=== PATIENT | female | born 1990 | race Caucasian/White ===

== ENCOUNTER 2021-10-28 06:50 | Inpatient (IN) ==
--- NOTE | 2021-10-25 13:21 | Anesthesiology Consultation ---
Date of Service October 25, 2021 Assessment & Plan (1) Encounter for pre-operative examination: COVID screening: Per assessment on 10/25: Travel screen negative, no known COVID-19 positive contacts or current COVID-19 related symptoms. Patient was C OVID PCR positive 09/13/21 (report scanned into [employer]) > symptoms at time of: loss taste and smell, fatigue, fever; received hydration in hospital > resolved. Surgeon arranging preop COVID testing (scheduled 10/26; [place]). Awaiting results. If preop COVID test comes back negative, patient is able to proceed without COVID positive pathway precautions per discontinuation of transmission-based precautions protocol. 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 Proposed Anesthesia Anesthesia Type: General Risk / Benefits Reviewed With: PT / POA / Parent / Guardian, Accepts Plan and Informed Consent Obtained History Surgery Operation Date: 10/28/21 08:50 Proposed Procedures p Section in LD (Delivery of Baby Through Abdominal Incision) - Erna Hdez MD, FACOG s with Bilateral Tubal Ligation - Erna Hdez MD, FACOG Height/Weight Height: 5 ft 3 in Weight: 84.368 kg Allergies Allergy/AdvReac Type Severity Reaction Status Date / Time Clarithromycin TABS Allergy Mild when child Uncoded 10/25/21 12:23 rash Erythromycin Derivatives Allergy Mild when child Uncoded 10/25/21 12:23 rash Medications Home Medications Medication Instructions Recorded Confirmed Last Taken prenat.vits,arthur,uqh-cdoj-jwlbv 1 tab PO QAM 03/21/21 10/27/21 09/15/21 10:30 ferrous sulfate 325 mg (65 mg 325 mg PO QAM 09/15/21 10/27/21 09/15/21 10:30 iron) tablet (iron) Past Medical History Medical History History of COVID-19 Dx 09/13/21 > symptoms at time of: loss taste and smell, fatigue, fever; received hydration in hospital > resolved Exercise / Class Metabolic Activity II 4-5 Yardwork/Stairs/Walk up hill Past Family History Family History Father Heart disease Clotting disorder No further details Deep vein thrombosis Denies family history of Ovarian cancer Breast cancer Colorectal cancer Past Surgical History Surgical History History of appendectomy History of wisdom tooth extraction S/P breast lumpectomy Past Anesthesia History No Hx of Anesthesia Complications and No Family Hx of Anesthesia Complications History of PONV No Hx of PONV and No Hx of Motion Sickness Social History Smoking Status: Never smoker Do You Dip or Chew Tobacco: No Hx Alcohol Use: No Hx Substance Use: No substance use type: does not use Review of Systems denies fever/cough/ colds/ chest pain/ SOB/ JUANJOSE denies JUANJOSE Physical Exam Vital Signs Last Vital Signs Pulse 82 10/28/21 07:55 Resp 18 10/28/21 07:55 BP 124/72 10/28/21 07:55 ENMT Mouth: no TMJ abnormality and no dentition abnormality Thyromental Distance: > or= 3.5 Finger Breadths Mallampati Class: II Neck neck extension not limited Respiratory normal respiratory effort; no respiratory distress Auscultation: lungs clear to auscultation bilaterally Cardiovascular Rate/Rhythm: regular rate and regular rhythm Neurologic moves all extremities Psychiatric Orientation: alert and oriented x 3 Testing Laboratory Results Blood Type A Positive 10/28/21 07:43 Antibody Screen NEGATIVE 10/28/21 07:43 COVID PCR (09/13/21): detected
--- NOTE | 2021-10-27 09:04 | History & Physical Report ---
Date of Service October 27, 2021 Assessment & Plan (1) Fourth degree perineal laceration during delivery: (2) with 39 completed weeks gestation: Plan: Patient desires primary c/s for delivery. Declines MAME, understanding that the liklihood of repeat 4th degree would be probably quite small. Patient also desires TL--understands permanent, other intermediate but reversible options discussed. Discussed consent with risks of anesthesia, bleeding, transfusion, infection, poor wound healing, damage to surrounding structures, need for further surgery, injury to baby. Questions answered. Consent reviewed and signed. Patient had COVID the beginning of Dec so will not be retested. Her son has a cold and tested neg for covid. She admits to a cough. History of Present Illness Chief Complaint: presents for c/s and tl Primary Care Provider: NO PCP Patient is a 31yowf with iup at 39 1/7 weeks who presents to labor and delivery for primary c/s with TL. She had a 4th degree laceration and repair with her first baby and does not want any chance of that happening again. She elects primary c/s. The has been uncomplicated. Blood Type A Positive 04/04/21 Antibody Screen NEGATIVE 04/04/21 Hemoglobin 9.6 g/dL (12.0-16.0) L 08/18/21 Hematocrit 29.9 % (37-47) L 08/18/21 Mean Corpuscular Volume 94.1 fL (80-100) 04/04/21 Platelet Count 322 K/uL (130-400) 04/04/21 Rubella IgG Antibody Immune (Immune) 04/04/21 Rapid Plasma Reagin Nonreactive (Nonreactive) 04/04/21 Hepatitis B Surface Antigen Neg (Neg) 04/04/21 HIV (1&2) Ab and P24 Ag, 4th Gener Neg (Neg) 04/04/21 Glucose 1 Hour 50 gm Load 136 mg/dl (70-130) H 08/18/21 OB Optional Labs: D Chlamydia trachomatis RNA NOT DETECTED (NOT DETECTED) 04/04/21 Neisseria gonorrhoeae RNA NOT DETECTED (NOT DETECTED) 04/04/21 Labs Reviewed: declines cf/sma low risk panorama--ak declined afp--ak 28 week 2 hr gtt passed-ak gbs neg--ak Allergies Allergy/AdvReac Type Severity Reaction Status Date / Time Clarithromycin TABS Allergy Mild when child Uncoded 10/25/21 12:23 rash Erythromycin Derivatives Allergy Mild when child Uncoded 10/25/21 12:23 rash Home Medications Medication Instructions Recorded Confirmed Type prenat.vits,arthur,zzb-zoqy-zjwsa 1 tab PO QAM 03/21/21 10/27/21 History ferrous sulfate 325 mg (65 mg 325 mg PO QAM 09/15/21 10/27/21 History iron) tablet (iron) Patient History Medical History History of COVID-19 Dx 09/13/21 > symptoms at time of: loss taste and smell, fatigue, fever; received hydration in hospital > resolved Surgical History History of appendectomy History of wisdom tooth extraction S/P breast lumpectomy Family History Father Heart disease Clotting disorder No further details Deep vein thrombosis Denies family history of Ovarian cancer Breast cancer Colorectal cancer Social History Smoking Status: Never smoker Second Hand Exposure: No; Hx Alcohol Use: No Hx Substance Use: No Preferred Language: Ethiopian Communication Ability: Effective Visual Impairment: Limited Hearing Ability: Normal Public Policy Associate Required: No Beliefs That Will Affect Care: None marital status: marital status details: Mele Harp (35) [phone] Current Living Situation: Spouse Current Living Situation Comment: Lives with , son, dog and cats current occupational status: employed current occupation: [employer] Feels Safe at Home: Yes caffeine: No Dental Care, Regularly: Yes Assistive Devices: Contacts and Glasses OB History g1--, 4th degree 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
[~2021-10-28 06:50] MED LIST: CITRIC ACID/SODIUM CITRATE 15 ML UDC PO SCH; LACTATED RINGER'S 1,000 ML IV SCH; ceFAZolin 2,000 MG in SYRINGE 0 ML IV SCH
[2021-10-28] MEDS ORDERED: ONDANSETRON INJ 2 MG/ML 2 ML VIAL IV PRN (09:05)
[2021-10-28] MEDS ORDERED: NALBUPHINE HCL INJ 10 MG/ML AMP IV PRN (09:05)
[2021-10-28] MEDS ORDERED: NALOXONE HCL 1 MG in SODIUM CHLORIDE 0.9% 1000ML 1,000 ML IV PRN (09:05)
[2021-10-28] MEDS ORDERED: fentaNYL citrate 100 MCG/2 ML VIAL IV PRN (09:05)
[2021-10-28] MEDS ORDERED: LACTATED RINGER'S 500 ML IV PRN (09:05)
[2021-10-28] MEDS ORDERED: ePHEDrine sulfate 50 MG/ML AMP IV PRN (09:05)
[2021-10-28] MEDS ORDERED: NALOXONE HCL 0.4 MG/1 ML VIAL/CARP IV PRN (09:05)
[2021-10-28] MEDS ORDERED: MoRPHine SULFATE PF 1 MG/ML 10 ML AMP/VIAL INT SPINAL ONE (09:05)
[2021-10-28] MEDS ORDERED: NALOXONE HCL 0.08 MG in SYRINGE 1.8 ML IV PRN (09:05)
[2021-10-28] MEDS ORDERED: diphenhydrAMINE 50 MG/ML VIAL IV PRN (09:05)
[2021-10-28] MEDS ORDERED: MoRPHine SULFATE 2 MG/ML CARP IV PRN (09:05)
[2021-10-28] MEDS ORDERED: fentaNYL citrate 100 MCG/2 ML VIAL ONE (09:13)
[2021-10-28] MEDS ORDERED: OXYTOCIN 10 UNITS/ML 10ML VIAL ONE (09:13)
[2021-10-28] MEDS ORDERED: MoRPHine SULFATE PF 1 MG/ML 10 ML AMP/VIAL ONE (09:13)
[2021-10-28] MEDS ORDERED: SODIUM CHLORIDE 0.9% 1000ML 1,000 ML IV SCH (09:15)
[2021-10-28] MEDS ORDERED: NO NARCOTICS OR SEDATIVES SCH (09:15)
[2021-10-28 10:02] LABS: Hemoglobin 11.1 g/dL (12.0-16.0); Mean Corpuscular Volume 91.4 fL (80-100); Mean Platelet Volume 9.1 fL (7.4-10.4); Platelet Count 273 K/uL (130-400); RDW Coefficient of Variation 17.9 % (11.5-14.5); RDW Standard Deviation 60.1 fL (36.4-46.3); Red Blood Count 3.83 M/uL (4.2-5.4); White Blood Count 8.67 K/uL (4.8-10.8)
[2021-10-28 10:03] LABS: Mean Corpuscular Hgb Conc 31.7 g/dL (32-36)
[2021-10-28] MEDS ORDERED: ePHEDrine sulfate 50 MG/ML SYR ONE (10:11)
[2021-10-28] MEDS ORDERED: PHENYLEPHRINE 100MCG/ML 5ML SYR ONE (10:11)
--- NOTE | 2021-10-28 10:59 | Operative Report ---
PG Post Operative Report Pre & Post Diagnosis Operation Date: 10/28/21 08:50 <No data on this case meets the specified criteria> preop diagnosis 1. iup at 39 1/7 weeks 2. hx of lga bab 3. hx of fourth degree laceration 4. desire for sterilization postop dx same I identified the patient and participated in the time-out.: Yes Procedure Operation Date: 10/28/21 08:50 <No data on this case meets the specified criteria> primary low transverse with modified bilateral leora tubal ligation Surgeon Erna Hdez MD, FACOG Reed Maker Virginia Chen MD, Lola Jones, PGY1 Estimated Blood Loss 700 Findings Consistent with Post-Op Diagnosis viable female infant , apgars 9/9, copious clear fluid nl uterus, tubes, ovaries bilaterally Fluids 1000cc Specimens tubal segments Drains betancur Anesthesia Type Spinal Complications none Disposition Accompanied Patient To Recovery: Yes Disposition: L&D Indications 31yowf with iup at 39 weeks with hx of 10#12oz baby and fourth degree laceration with first delivery. Desires elective and sterilization Description of Procedure The patient was taken to the operating room where she was identified verbally and by bracelet. She was seated on the operating table where a spinal anesthetic was placed by anesthesia. She was then placed in the supine position with a leftward tilt. A Betancur catheter was placed sterilely. the patient was prepped and draped in a normal standard fashion. the anesthetic was tested and found to be adequate. A time-out was held, identifying correct patient, procedure, positioning and preoperative antibiotics. There were no concerns. A Pfannenstiel skin incision was made with a knife and taken down to the underlying layer of fascia with the knife and Bovie electrocautery. Bleeding was attended to with the Bovie. The fascia was incised in the midline with the knife and taken out laterally with scissors. The superior edge of the fascial incision was grasped, elevated and the underlying layer of rectus muscle was taken off bluntly and with scissors. In a similar fashion, the inferior edge of the fascial incision was grasped, elevated and the underlying layer of rectus muscle was taken off bluntly and with scissors. The muscles were bluntly in the midline. The peritoneum was entered bluntly. The incision was then stretched. The bladder blade was placed. The vesicouterine peritoneum was identified, entered with scissors and taken out laterally with scissors. The bladder flap was created digitally A hysterotomy incision was scored with a knife and the incision was stretched superiorly and inferiorly with the shear operator helper's fingers. The operators hand was placed into the incision and the head was delivered atraumatically. No nuchal cord. The nose and mouth were bulb suctioned. the rest of the infant was then delivered without difficulty. The nose and mouth were again bulb suctioned. The cord was clamped and cut and the infant was then handed off to the awaiting receipt and report clerk for drying and attention. Cord blood and segment were obtained. The placenta was Manually extracted. The uterus was exteriorized and cleared of all clot and debris with moistened laparotomy sponges. The hysterotomy incision was repaired in two layers, the first in a running locked layer, the second in an imbricating layer. several sutures were needed for hemostasis. Posterior cul-de-sac was irrigated and cleared of all clot and debris. A tubal ligation was then performed. first on the right and then on the left a Alem was used to pickler helper a loop of tube. It was sutured with 2-0 plain gut x 2. The tube was removed with scissors and the edges cauterized. Hemostasis was noted to be good. The hysterotomy incision was again inspected and found to be hemostatic. the uterus was reinteriorized. Hysterotomy incision was again and a few more sutures were needed until hemostasis assured. Rectus muscles were reapproximated with several interrupted stitches of 0 Vicryl. The fascia was then reapproximated with 0 Vicryl starting at the edges and meeting in the midline. The subcuticular tissues were copiously irrigated and bleeding was attended to with cautery. The skin was then closed with 4-0 Vicryl in a subcuticular fashion. All sponge, lap and needle counts were correct x 2 and patient was taken to the recovery room in stable condition. I attest to the content of the Intraoperative Record and any orders documented therein. Any exceptions are noted below. OB Procedure Charges [id number] Add on Tubal for C/S
[2021-10-28] MEDS ORDERED: miSOPROStoL 200 MCG TAB ONE (11:53)
[2021-10-28] MEDS ORDERED: BENZOCAINE 20% AER SPR 82.5 GM CAN EXT PRN (11:57)
[2021-10-28] MEDS ORDERED: MAGNESIUM HYDROXIDE SUSP 30 ML UDC PO PRN (11:57)
[2021-10-28] MEDS ORDERED: HYDROCORTISONE ACETATE 25 MG SUPP PR PRN (11:57)
[2021-10-28] MEDS ORDERED: DIPHTHERIA/TETANUS/PERTUSSIS 0.5 ML SYR/VIAL IM ONE (11:57)
[2021-10-28] MEDS ORDERED: SENNA 8.6 MG TAB PO PRN (11:57)
[2021-10-28] MEDS ORDERED: SUPERCREAM 0.870% 15 GM JAR EXT PRN (11:57)
[2021-10-28] MEDS ORDERED: LACTATED RINGER'S 1,000 ML IV SCH (12:00)
[2021-10-28] MEDS ORDERED: miSOPROStoL 200 MCG TAB PR ONE (12:04)
[2021-10-28] MEDS ORDERED: METHYLERGONOVINE MALEATE 0.2 MG/ML AMP IM ONE (12:04)
--- NOTE | 2021-10-28 12:04 | Obstetrical Progress Note ---
Date of Service October 28, 2021 Assessment & Plan (1) Status post delivery: (2) PPH ( hemorrhage): Will monitor. Given cytotec and methergine and will be running large volume pitocin. Get stat cbc. If continues to bleed will need consider Bakri. Vitals stable. Will weigh loss. Subjective Patient recently up from c/s. Nursing notes that with fundal massage , the patient has passed 3 large clots. Patient notes she is feeling ok. Physical Exam Constitutional WD/WN, vitals as above (bp stable, pulse less than 100) Psychiatric A+Ox3, euthymic affect Genitourinary able to reach up into the cervix which is about 3cm dilated and break up palpable clot and then able to express clot with fundal massage. Fundus firms up quickly. 1000mg of rectal cytotec placed. at end fundus firm and 1-2 below u Results & Data ([facility]) Vital Signs (Past 12 Hours) Vital Signs Temp Pulse Resp BP Pulse Ox 10/28/21 11:56 66 107/62 100 10/28/21 11:51 68 100 10/28/21 11:49 84 93 10/28/21 11:46 78 112/75 100 10/28/21 11:45 18 10/28/21 11:41 68 100 10/28/21 11:36 73 99 10/28/21 11:35 18 10/28/21 11:31 78 99 10/28/21 11:26 80 98 10/28/21 11:25 36.4 C L 18 10/28/21 11:21 83 100 10/28/21 11:16 73 99 10/28/21 11:11 69 100 10/28/21 11:07 68 122/68 10/28/21 11:06 81 100 10/28/21 09:46 85 98 10/28/21 09:41 86 98 10/28/21 09:36 85 97 10/28/21 09:31 87 96 10/28/21 09:30 18 10/28/21 09:26 83 98 10/28/21 09:21 82 98 10/28/21 09:16 84 97 10/28/21 09:00 18 10/28/21 07:55 82 18 124/72 10/28/21 07:08 82 124/72
[2021-10-28] MEDS: OXYTOCIN 20 UNITS in LACTATED RINGER'S 1,000 ML IV SCH ×2 (12:10→13:59)
[2021-10-28] MEDS ORDERED: SODIUM CHLORIDE 0.9% 250 ML IV PRN (12:18)
--- NOTE | 2021-10-28 12:20 | Communication Note ---
Date of Service: October 28, 2021 total blood loss since surgery is 900+. Will type and cross for two get coags and cbc. continue to monitor closely
[2021-10-28] MEDS: KETOROLAC 30 MG/ML VIAL IV PRN ×2 (12:27→18:38)
[2021-10-28 12:44] LABS: Hematocrit (blood only) 34.5 % (37-47); Mean Corpuscular Hemoglobin 29.5 pg (25-34); Mean Corpuscular Volume 92.5 fL (80-100); Mean Platelet Volume 9.2 fL (7.4-10.4); Platelet Count 269 K/uL (130-400); RDW Coefficient of Variation 18.1 % (11.5-14.5); RDW Standard Deviation 61.1 fL (36.4-46.3); Red Blood Count 3.73 M/uL (4.2-5.4); White Blood Count 11.62 K/uL (4.8-10.8)
[2021-10-28 12:54] LABS: Fibrinogen 394 mg/dl (184-400); Partial Thromboplastin Time 25.8 Seconds (21.0-31.0); Prothrombin Time 9.7 Seconds (9.0-12.0)
[2021-10-28 12:58] LABS: Mean Corpuscular Hgb Conc 31.9 g/dL (32-36)
--- NOTE | 2021-10-28 15:17 | Anesthesiology Progress Note ---
Date of Service October 28, 2021 Anesthesia Post Procedure Vital Signs Vital Signs: Temp Pulse Resp BP Pulse Ox 10/28/21 13:56 71 100 10/28/21 13:54 69 117/57 L 10/28/21 13:51 68 100 10/28/21 13:46 75 100 10/28/21 13:41 68 99 10/28/21 13:36 67 100 10/28/21 13:31 71 100 10/28/21 13:26 63 100 10/28/21 13:25 18 10/28/21 13:21 74 99 10/28/21 13:16 64 120/75 100 10/28/21 13:11 61 100 10/28/21 13:06 67 123/74 100 10/28/21 13:01 69 100 10/28/21 12:56 75 115/71 100 10/28/21 12:55 18 10/28/21 12:51 69 100 10/28/21 12:46 81 124/74 99 10/28/21 12:41 76 100 10/28/21 12:36 85 124/73 100 10/28/21 12:31 60 100 10/28/21 12:26 61 113/68 100 10/28/21 12:25 18 10/28/21 12:21 65 100 10/28/21 12:16 71 117/58 L 100 10/28/21 12:15 36.6 C 18 10/28/21 12:11 67 100 10/28/21 12:06 61 108/66 100 10/28/21 12:05 18 10/28/21 12:01 66 109/65 100 10/28/21 11:56 66 107/62 100 10/28/21 11:55 18 10/28/21 11:51 68 100 10/28/21 11:49 84 93 10/28/21 11:46 78 112/75 100 10/28/21 11:45 18 10/28/21 11:41 68 100 10/28/21 11:36 73 99 10/28/21 11:35 18 10/28/21 11:31 78 99 10/28/21 11:26 80 98 10/28/21 11:25 36.4 C L 18 10/28/21 11:21 83 100 10/28/21 11:16 73 99 10/28/21 11:11 69 100 10/28/21 11:07 68 122/68 10/28/21 11:06 81 100 10/28/21 09:46 85 98 10/28/21 09:41 86 98 10/28/21 09:36 85 97 10/28/21 09:31 87 96 10/28/21 09:30 18 10/28/21 09:26 83 98 10/28/21 09:21 82 98 10/28/21 09:16 84 97 10/28/21 09:00 18 10/28/21 07:55 82 18 124/72 10/28/21 07:08 82 124/72 Transfer of Care Handoff Completed per policy Notes Mental Status: alert / awake / arousable and participated in evaluation Patient Amnestic to Procedure: Yes Nausea / Vomiting: adequately controlled Pain: adequately controlled Airway Patency, RR, SpO2: stable & adequate BP & HR: stable & adequate Hydration State: stable & adequate Anesthetic Complications: no major complications apparent and Pt Satisfied with anesthetic care
[2021-10-28] MEDS: SIMETHICONE 80 MG CHEW PO SCH (21:15)
[2021-10-28] MEDS: DOCUSATE SODIUM 100 MG CAP PO SCH (21:15)
[2021-10-29] MEDS: KETOROLAC 30 MG/ML VIAL IV PRN (02:38)
[2021-10-29] MEDS ORDERED: PROMETHAZINE HCL 25 MG in SODIUM CHLORIDE 0.9% 50 ML IV PRN (03:06)
[2021-10-29] MEDS ORDERED: diphenhydrAMINE Capsule 25 MG CAP PO PRN (03:06)
[2021-10-29] MEDS ORDERED: diphenhydrAMINE 50 MG/ML VIAL IV PRN (03:06)
[2021-10-29] MEDS ORDERED: KETOROLAC 30 MG/ML VIAL IV PRN (03:06)
[2021-10-29] MEDS ORDERED: ONDANSETRON INJ 2 MG/ML 2 ML VIAL IV PRN (03:06)
[2021-10-29] MEDS ORDERED: DC INTRASPINAL MORPHINE ONE (03:06)
[2021-10-29 06:56] LABS: Basophils # (auto) 0.02 K/uL (0-0.2); Basophils % (auto) 0.2 %; Eosinophils % (auto) 1.2 %; Hematocrit (blood only) 27.4 % (37-47); Hemoglobin 8.6 g/dL (12.0-16.0); Immature Granulocytes # (auto) 0.01 K/uL (0.00-0.02); Immature Granulocytes % (auto) 0.1 %; Lymphocytes # (auto) 1.68 K/uL (1.2-3.4); Lymphocytes % (auto) 19.5 %; Mean Corpuscular Hgb Conc 31.4 g/dL (32-36); Mean Corpuscular Volume 92.3 fL (80-100); Monocytes # (auto) 0.76 K/uL (0.11-0.59); Monocytes % (auto) 8.8 %; Neutrophils # (auto) 6.04 K/uL (1.4-6.5); Neutrophils % (auto) 70.2 %; Platelet Count 233 K/uL (130-400); RDW Coefficient of Variation 18.3 % (11.5-14.5); RDW Standard Deviation 61.1 fL (36.4-46.3); Red Blood Count 2.97 M/uL (4.2-5.4); White Blood Count 8.61 K/uL (4.8-10.8)
--- NOTE | 2021-10-29 07:21 | Obstetrical Progress Note ---
Date of Service October 29, 2021 Assessment & Plan (1) PPH ( hemorrhage): (2) Status post delivery: Doing well. Was up to void once and no issues. hgb from 11 to 8.6. Fundus rock hard now and bleeding scant. Encourage ambulation. adat. Will have to see if symptomatic with further ambulation. Patient was crossed for two yesterday. Rh positive. Routine care. Day #:: 1 Subjective Ambulation: limited ambulation Voiding: no voiding problems Passing Gas:: Yes Diet Tolerance:: clear liquids Lochia:: Small (much improved) Feeding Type:: bottle feeding Pain controlled. Feels sore Physical Exam Constitutional WD/WN, vitals as above Cardiovascular Extremities: no calf tenderness and no edema Gastrointestinal (Abdomen) soft, nt, nd incision--c/d/i ff/nt at 2 below u Skin no rashes, warm and dry Psychiatric A+Ox3, euthymic affect Results & Data ([facility]) Vital Signs (Past 12 Hours) Vital Signs Temp Pulse Resp BP Pulse Ox 10/29/21 03:00 36.9 C 68 18 100/68 100 10/29/21 02:00 20 99 10/29/21 01:00 20 98 10/29/21 00:00 22 99 10/28/21 23:50 36.9 C 81 20 98/62 L 97 10/28/21 23:00 20 98 10/28/21 22:09 20 97 10/28/21 21:00 20 98 10/28/21 19:45 37 C 75 24 109/70 98
[2021-10-29] MEDS: FERROUS SULFATE 325 MG TAB PO SCH (08:07)
[2021-10-29] MEDS: SIMETHICONE 80 MG CHEW PO SCH ×4 (08:07→19:45)
[2021-10-29] MEDS: oxyCODONE/ACETAMINOPHEN 5mg/325mg TAB PO PRN ×4 (08:07→22:09)
[2021-10-29] MEDS: DOCUSATE SODIUM 100 MG CAP PO SCH ×2 (08:07→19:45)
[2021-10-29] MEDS: PRENATAL VITAMIN 1 TAB PO SCH (08:07)
[2021-10-29] MEDS: IBUPROFEN 600 MG TAB PO PRN ×4 (08:08→22:08)
[2021-10-29] MEDS ORDERED: METHYLERGONOVINE MALEATE 0.2 MG/ML AMP ONE (17:08)
[2021-10-29] MEDS ORDERED: bisacodyL 5 MG TABEC PO SCH (20:00)
[2021-10-30] MEDS: IBUPROFEN 600 MG TAB PO PRN ×3 (02:22→11:38)
[2021-10-30] MEDS: oxyCODONE/ACETAMINOPHEN 5mg/325mg TAB PO PRN ×3 (02:23→11:38)
[2021-10-30 07:13] LABS: Hemoglobin 8.8 g/dL (12.0-16.0)
--- NOTE | 2021-10-30 08:25 | Obstetrical Progress Note ---
Date of Service October 30, 2021 Assessment & Plan (1) Status post delivery: (2) PPH ( hemorrhage): stable, desires d/c home, hgb stable, aware to take iron for 6wkpp. bottle, rh pos, ri. instructions reviewed, f/u 6 wk pp check. checked on pa pdmp and no issues identified. Day #:: 2 Subjective Ambulation: ambulating normally Voiding: no voiding problems Passing Gas:: Yes Diet Tolerance:: regular diet Lochia:: Small Feeding Type:: breast feeding pain control good. bottle feeding. Constitutional: + as per Subjective / HPI Physical Exam Constitutional WD/WN, vitals as above Respiratory normal respiratory effort, lungs clear to auscultation Cardiovascular Rate/Rhythm: regular rate and regular rhythm Gastrointestinal (Abdomen) Inspection/Auscultation: abdomen normal to inspection Percussion/Palpation: abdomen soft Fundus firm 2cm down incision c/d/i with steris Musculoskeletal nt calves no edema Neurologic grossly normal Psychiatric A+Ox3, euthymic affect Results & Data ([facility]) Vital Signs (Past 12 Hours) Vital Signs Temp Pulse Resp BP Pulse Ox 10/29/21 22:05 97.9 F 75 16 118/75 99
[2021-10-30] MEDS: SIMETHICONE 80 MG CHEW PO SCH (09:02)
[2021-10-30] MEDS: PRENATAL VITAMIN 1 TAB PO SCH (09:02)
[2021-10-30] MEDS: DOCUSATE SODIUM 100 MG CAP PO SCH (09:02)
[2021-10-30] MEDS: FERROUS SULFATE 325 MG TAB PO SCH (09:02)
--- NOTE | 2021-10-31 11:25 | Discharge Summary (DS) ---
DATE OF ADMISSION: 10/28/2021 DATE OF DISCHARGE: 10/30/2021 ADMIT DIAGNOSES: 1. Intrauterine at 39 and 1/7 weeks. 2. History of previous fourth-degree laceration. 3. Desire for permanent surgical sterilization. DISCHARGE DIAGNOSES: 1. Intrauterine at 39 and 1/7 weeks. 2. History of previous fourth-degree laceration. 3. Desire for permanent surgical sterilization. 4. hemorrhage. PROCEDURES: Primary low transverse section. HISTORY: The patient is a 31-year-old white female, 2, para 1-0-0-1, with an intrauterine pr egnancy at 39 and 1/7 weeks who presents to labor and delivery for a primary with tubal lig ation. She had a fourth-degree laceration repair with her first baby and does not want any chance of that happening again. She elects primary . The has been uncomplicated. Additio eleonora, she desires permanent surgical sterilization. For the rest of the patient's history and physic al, please see her history and physical. ASSESSMENT: This is a 31-year-old white female, 2, para 1-0-0-1, at 39 and 1/7 weeks who pre sents for primary section and tubal ligation. HOSPITAL COURSE: The patient was admitted. She underwent a primary low transverse section without difficulty to deliver a viable female with Apgars of 9 and 9. There was copious clear amniotic fluid at the time of rupture. She had normal uterus, tubes and ovaries bilaterally. Shortly after returning to the unit, she started passing some clots and having atony. I w as able to do an exam and reached up into her uterus, break a palpable clot and then expressed the cl ot with fundal massage. The fundus firmed up quickly. She was given additional dilute Pitocin, 1000 mg of Cytotec rectally and IM Methergine. She had an additional approximately 1000 mL of blood loss in this immediate period. Her fundus firmed up nicely. Her bleeding significantly decre ased at that point in time. She started out with hemoglobin of 11.0 and did drop to a marcelle of 8.6. She was asymptomatic from this and did not require transfusion. The rest of her postoperative course was uncomplicated. She tolerated a regular diet, ambulated with out difficulty, voided after the removal of her [place] catheter and had her pain well controlled with oral pain medications. She was discharged home to return in 6 weeks for a check. Job ID: [id number]
== END 2021-10-30 12:50 | disposition home or self-care (01) | DRG 785 ==
LOC: 4S1 06:50 → EDSTATUS 08:50 → 4S2 15:17
PROC: M.PPTLD (2021-10-28 08:50)
DX: Z30.2 Encounter for sterilization; Z88.1 Allergy status to other antibiotic agents; Z86.16 Personal history of COVID-19; O72.1 Other immediate postpartum hemorrhage; Z37.0 Single live birth; O09.893 Supervision of other high risk pregnancies, third trimester; Z79.899 Other long term (current) drug therapy; Z87.59 Personal history of other complications of pregnancy, childbirth and the puerperium; Z3A.39 39 weeks gestation of pregnancy; O26.893 Other specified pregnancy related conditions, third trimester